=== PATIENT | female | born 1965 | race Caucasian/White ===

== ENCOUNTER 2019-09-19 09:57 | Emergency (ER) | payer MEDICARE ==
[~2019-09-19] VITALS: Ht 154.9 cm; Wt 79.4 kg
[2019-09-19] MEDS ORDERED: FLEXERIL PO (10:15)
[2019-09-19] MEDS ORDERED: CHLORTHALIDONE25 MG PO (10:15)
[2019-09-19] MEDS ORDERED: ALPRAZOLAM XR3 MG PO (10:15)
[2019-09-19] MEDS ORDERED: HUMERA PO (10:16)
[2019-09-19] MEDS ORDERED: GABAPENTIN600 M1 PO (10:17)
[2019-09-19] MEDS ORDERED: NORVASC 2.5 MG2.5 M1 PO (10:17)
[2019-09-19] MEDS ORDERED: VENLAFAXINE HCL25 MG PO (10:17)
[2019-09-19] MEDS ORDERED: FOLIC ACID1 MG PO (10:17)
[2019-09-19] MEDS ORDERED: METHOTREXATE 22.5 M1 PO (10:17)
[2019-09-19] MEDS ORDERED: BYSTOLIC10 MG PO (10:18)
[2019-09-19] MEDS ORDERED: PLAQUENIL200 MG PO (10:19)
[2019-09-19 10:32] LABS: ABSOLUTE BASOPHILS 0.1 thou/uL (0.0-0.2); ABSOLUTE EOSINOPHILS 0.1 thou/uL (0.0-0.7); ABSOLUTE LYMPHOCYTES 2.6 thou/uL (0.8-5.3); ABSOLUTE MONOCYTES 0.8 thou/uL (0.0-1.2); ABSOLUTE NEUTROPHILS 4.8 thou/uL (1.6-8.1); BASOPHILS 0.7 %; EOSINOPHILS 1.5 %; HEMATOCRIT 38.4 % (37.0-47.0); HEMOGLOBIN 13.4 gm/dL (12.0-15.0); LYMPHOCYTES 31.3 %; MCHC 34.9 g/dL (28.0-37.0); MCV 88.7 fL (80.0-100.0); MONOCYTES 9.9 %; MPV 7.9 fl. (7.2-11.1); NUCLEATED RBCS 0 /100WBC; PLATELET COUNT* 351 thou/uL (150-400); POLYS 56.6 %; RBC 4.32 mil/uL (4.20-5.00); RDW-CV 13.7 % (10.5-14.5); WBC 8.4 thou/uL (4.0-11.0)
[2019-09-19 10:36] LABS: CALCIUM 8.7 mg/dL (8.5-10.1); CREATININE 0.9 mg/dL (0.6-1.3); POTASSIUM 3.7 mmol/L (3.5-5.1)
[2019-09-19 10:37] LABS: INR 1.1; PROTIME 10.8 Seconds (9.20-11.50)
[2019-09-19 10:47] LABS: TOTAL BILIRUBIN 0.3 mg/dL (<0.1-1.0); TOTAL PROTEIN 7.9 g/dL (6.4-8.2)
[2019-09-19 11:03] VITALS: BP 138/86
--- NOTE | 2019-09-19 16:49 | EKG ---
[place] [address] ELECTROCARDIOGRAM REPORT Name: HOMA KABA Room: [facility] [place]#: [id number] Admission: 09/19/19 Attend Phys: Discharge: 09/19/19 Date of : 65 Date of Service: 09/19/19 1018 Report #: [id number] THIS REPORT FOR: //name// [facility] ED Test Date: 2019-09-19 Test Time: 10:18:23 Pat Name: HOMA KABA Department: Room: Gender: Armed [employer]: : 1965 Requested By: Rafa Jaquez Order Number: [id number] MD: Nader Combs Measurements Intervals [place] Rate: 81 P: 66 VT: 165 QRS: 33 QRSD: 89 T: 57 QT: 386 QTc: 448 Interpretive Statements Sinus rhythm septal q waves noted Consider right atrial enlargement No previous ECG available for comparison Electronically Signed On 09-19-2019 16:48:02 TIE [employer]AYER by Nader Combs [email or web address] <ELECTRONICALLY SIGNED> By: Nader Combs MD, [facility] 09/19/19 1648 Nader Combs MD, [facility] /EPI
== END 2019-09-19 11:04 | disposition home or self-care (01) ==
LOC: M.ERS 09:57
PROVIDERS: Family Medicine
DX: E87.1 Hypo-osmolality and hyponatremia (principal); I10 Essential (primary) hypertension; F31.9 Bipolar disorder, unspecified; Z90.710 Acquired absence of both cervix and uterus; Z88.6 Allergy status to analgesic agent; Z88.8 Allergy status to other drugs, medicaments and biological substances